=== PATIENT | male | born 1965 | race Caucasian/White ===

== ENCOUNTER 2020-04-01 11:21 | Day surgery (SDC) | payer BC ==
[2020-03-31 10:49] VITALS: BP 157/96
[~2020-04-01] VITALS: Ht 175.3 cm; Wt 87.5 kg
[2020-04-01] MEDS ORDERED: DEXAMETHASONE SOD PHOSPHATE 4 MG/ML 1ML VIAL ONE (12:05)
[2020-04-01] MEDS ORDERED: LIDOCAINE HCL MPF 1% 5ML VIAL ONE (12:05)
[2020-04-01] MEDS ORDERED: SODIUM CHLORIDE 0.9% 10 ML VIAL ONE (12:08)
[2020-04-01] MEDS ORDERED: LACTATED RINGERS 1000ML 1,000 ML IV ONE (12:13)
[2020-04-01] MEDS ORDERED: IOPAMIDOL 10 ML VIAL ONE (12:27)
[2020-04-01 12:33] VITALS: BP 152/83
[2020-04-01 14:15] VITALS: BP 132/77
[2020-04-01 14:30] VITALS: BP 138/82
[2020-04-01 14:45] VITALS: BP 137/80
[2020-04-01 15:00] VITALS: BP 136/84
== END 2020-04-01 15:05 ==
LOC: DAH 11:21
PROVIDERS: ATTEND Family Medicine Sports Medicine
DX: M51.16 Intervertebral disc disorders with radiculopathy, lumbar region (principal); Z20.828 Contact with and (suspected) exposure to other viral communicable diseases; M47.26 Other spondylosis with radiculopathy, lumbar region; G89.29 Other chronic pain; M48.00 Spinal stenosis, site unspecified; M54.5 Low back pain; I10 Essential (primary) hypertension; E78.5 Hyperlipidemia, unspecified; F17.210 Nicotine dependence, cigarettes, uncomplicated
CPT/HCPCS: 62323; A4215 ×3; A4221; A4222; A4223; A4615; A4657; A4663; C9803; J1100; J3490; J7120; Q9966; U0003; 62320; 77003

== ENCOUNTER 2020-07-09 09:40 | Emergency (ER) | payer BC ==
[2020-07-09] MEDS ORDERED: ONDANSETRON HCL 4 MG/2 ML VIAL ONE (10:53)
[2020-07-09] MEDS ORDERED: MORPHINE SULFATE 4 MG/1ML SYG ONE (10:53)
[2020-07-09] MEDS ORDERED: KETOROLAC TROMETHAMINE 30MG/ML ONE (11:31)
[2020-07-09] MEDS ORDERED: ORPHENADRINE CITRATE 30 MG/ML ML ONE (13:14)
== END 2020-07-09 14:01 | disposition home or self-care (01) ==
LOC: EDH 09:40
DX: M54.32 Sciatica, left side (principal)
CPT/HCPCS: 72100; 96374; 96375; 99284; J1885; J2270; J2360; J2405

== ENCOUNTER → 2020-07-21 | Outpatient (CLI) | payer BC | END | disposition home or self-care (01) | LOC: RAH 14:48 | PROVIDERS: ATTEND Physical Medicine & Rehabilitation | DX: M51.16 Intervertebral disc disorders with radiculopathy, lumbar region (principal) | CPT/HCPCS: 72148 ==

== ENCOUNTER 2020-07-30 09:00 | Observation (INO) | payer BC ==
[~2020-07-30] VITALS: Ht 175.3 cm; Wt 86.2 kg
[2020-07-30 09:57] LABS: BASOPHILS % (AUTO) 1.3 % (0.0-5.0); EOSINOPHILS % (AUTO) 1.7 % (0.0-8.0); HEMATOCRIT 49.1 % (42-54); LYMPHOCYTES % (AUTO) 18.7 % (21.0-51.0); MEAN CORPUSCULAR HEMOGLOBIN 31.7 pg (27.0-33.0); MEAN CORPUSCULAR HGB CONC 33.8 g/dL (32.0-36.0); MEAN CORPUSCULAR VOLUME 93.7 fL (79-99); NEUTROPHILS % (AUTO) 68.9 % (40.0-77.0); PLATELET COUNT (AUTO) 363 K/uL (130-400); RED BLOOD CELL COUNT(AUTO) 5.24 MIL/uL (4.50-6.20); RED CELL DISTRIBUTION WIDTH 11.2 % (11.0-15.5); WHITE BLOOD COUNT (AUTO) 10.8 K/uL (4.8-10.8)
[2020-07-30 10:06] LABS: POTASSIUM 4.2 mmol/L (3.5-5.1)
[2020-07-31] MEDS: CEFAZOLIN SODIUM 1 GM VIAL IVP SCH (13:45)
[2020-08-01 09:38] VITALS: BP 126/76
[2020-08-01] MEDS: CEFAZOLIN SODIUM 1 GM VIAL IVP SCH (13:45)
[2020-08-02] MEDS: CEFAZOLIN SODIUM 1 GM VIAL IVP SCH (13:45)
[2020-08-03] MEDS: CEFAZOLIN SODIUM 1 GM VIAL IVP SCH (13:45)
[2020-08-04] MEDS ORDERED: GABA300C PO (10:29)
[2020-08-04] MEDS ORDERED: VALS80TA30 PO (10:29)
[2020-08-04] MEDS ORDERED: HYDROCODONE PO (10:29)
[2020-08-04] MEDS: CEFAZOLIN SODIUM 1 GM VIAL IVP SCH (13:45)
[2020-08-05] VITALS (25 sets, daily range): BP systolic 91–148; BP diastolic 55–88
[2020-08-05] MEDS ORDERED: LIDOCAINE PF 100MG/5ML (2%) SYRINGE 5ML ONE (06:44)
[2020-08-05] MEDS ORDERED: DEXAMETHASONE SOD PHOSPHATE 10MG/ML 1ML VIAL ONE ×2 (06:44→06:48)
[2020-08-05] MEDS ORDERED: SUCCINYLCHOLINE CHLORIDE 20 MG/ML 10 ML VIAL ONE (06:44)
[2020-08-05] MEDS ORDERED: MIDAZOLAM HCL 1 MG/ML 2ML VIAL ONE (06:45)
[2020-08-05] MEDS ORDERED: PROPOFOL 10 MG/ML 20ML VIAL IV ONE (06:45)
[2020-08-05] MEDS ORDERED: NEOSTIGMINE 5MG/5ML SYR IV ONE (06:45)
[2020-08-05] MEDS ORDERED: GLYCOPYRROLATE 1 MG/5 ML SYRINGE ONE (06:45)
[2020-08-05] MEDS ORDERED: ONDANSETRON 4MG INJ ONE (06:45)
[2020-08-05] MEDS ORDERED: ROCURONIUM 10MG/1ML SYR 10 MG/ML ML ONE (06:45)
[2020-08-05] MEDS ORDERED: FENTANYL CITRATE PF 50 MCG/1 ML 2ML VIAL ONE ×2 (06:46→09:00)
[2020-08-05] MEDS ORDERED: BUPIVACAINE/EPI/PF 0.25% 10ML VIAL IJ ONE (06:51)
[2020-08-05] MEDS ORDERED: CEFAZOLIN SODIUM 1 GM VIAL ONE (06:51)
[2020-08-05] MEDS ORDERED: LACTATED RINGERS 1000ML 1,000 ML IV ONE (06:51)
[2020-08-05] MEDS ORDERED: THROMBIN-JMI 20000 UNIT KIT TP ONE (06:52)
[2020-08-05] MEDS ORDERED: MORPHINE PF 100MG/10ML AMP IV ONE (06:52)
[2020-08-05] MEDS: CEFAZOLIN SODIUM 1 GM VIAL IVP SCH ×4 (07:35→18:15)
[2020-08-05] MEDS: LACTATED RINGERS 1000ML 1,000 ML IV SCH ×2 (10:15→17:11)
[2020-08-05] MEDS ORDERED: HYDROCODONE/ACETAMINOPHEN 5/325 MG TAB PO PRN (10:15)
[2020-08-05] MEDS ORDERED: 0.9%NACL 10ML VIAL IVP PRN (10:15)
[2020-08-05] MEDS ORDERED: PROMETHAZINE HCL 25 MG/ML 1ML AMPULE IM PRN (10:15)
[2020-08-05] MEDS ORDERED: MORPHINE 2 MG SYG IVP PRN (10:15)
[2020-08-05] MEDS: LOSARTAN 50 MG TABLET PO SCH (14:51)
[2020-08-05] MEDS: DEXAMETHASONE SOD PHOSPHATE 4 MG/ML 1ML VIAL IVP SCH ×3 (14:51→20:08)
[2020-08-05] MEDS ORDERED: GABAPENTIN 300 MG CAPSULE ONE (19:04)
[2020-08-05] MEDS: GABAPENTIN 300 MG CAPSULE PO SCH (20:08)
[2020-08-06] MEDS: DEXAMETHASONE SOD PHOSPHATE 4 MG/ML 1ML VIAL IVP SCH ×2 (03:56→08:54)
[2020-08-06 04:09] VITALS: BP 96/57
[2020-08-06 08:12] VITALS: BP 108/60
[2020-08-06] MEDS: GABAPENTIN 300 MG CAPSULE PO SCH (08:54)
[2020-08-06] MEDS: LOSARTAN 50 MG TABLET PO SCH (08:55)
== END 2020-08-06 11:30 | disposition home or self-care (01) ==
LOC: OBSVTOIN 08-05 05:57 → DAHIP 08-05 05:57 → INTOOBSV 08-05 05:57 → EDSTATUS 08-05 09:00 → 4BH 08-05 11:23
PROVIDERS: ADMIT Neurological Surgery; ATTEND Neurological Surgery
DX: M51.16 Intervertebral disc disorders with radiculopathy, lumbar region (principal); Z20.822 Contact with and (suspected) exposure to COVID-19; I10 Essential (primary) hypertension; E78.00 Pure hypercholesterolemia, unspecified; Z79.899 Other long term (current) drug therapy; W18.42XA Slipping, tripping and stumbling without falling due to stepping into hole or opening, initial encounter; Y93.89 Activity, other specified; Y92.89 Other specified places as the place of occurrence of the external cause
CPT/HCPCS: 36415; 63030; 71045; 72100; 80051; 85025; 93005; 96361 ×2; 96374; 96375; 96376 ×2; A4215; A4216; A4221; A4222; A4223; A4344; A4600; A4649 ×2; A4663; A6260; G0378 ×25; J0330; J0690 ×3; J1100 ×3; J2001; J2250; J2274; J2405; J2704; J2710; J3010 ×2; J3490 ×2; J7120 ×3; U0003